=== PATIENT | male | born 1945 | race Caucasian/White ===

== ENCOUNTER → 2024-12-16 13:42 | Outpatient (REF) | payer OTHER, SELFPAY | LOC: EMG 13:42 | PROVIDERS: ATTENDING PHYSICIAN Podiatrist Foot & Ankle Surgery; FAMILY PHYSICIAN Nurse Practitioner Adult Health | DX: E11.40 Type 2 diabetes mellitus with diabetic neuropathy, unspecified (principal); R20.0 Anesthesia of skin; G60.8 Other hereditary and idiopathic neuropathies | CPT/HCPCS: 95886; 95911 ==

== ENCOUNTER 2025-02-28 09:42 | Emergency (ER) | payer OTHER, SELFPAY ==
[2025-02-28 09:51] VITALS: BP 159/89
--- NOTE | 2025-02-28 10:26 | ED.GENMED ---
History of Present Illness
General
Chief Complaint: Breathing Problem
Source: patient and spouse
Exam Limitations: none
Time Seen by Provider: 02/28/25 10:15
History of Present Illness
History of Present Illness:
79yoM with a history of Parkinson's disease, atrial fibrillation, chronic bronchitis, hypertension, hyperlipidemia, and type 2 diabetes presenting for evaluation of shortness of breath. Symptoms initially began 3 weeks ago. He reports shortness of
breath, cough, and chest congestion. He was seen at urgent care at symptom onset and was given a prescription for albuterol and what he believes was an antibiotic. He took this without any improvement. He is experiencing shortness of breath that
is worse with laying flat as well as with standing and ambulation. He went to urgent care again this morning and an EKG was performed and 'they did not like the way it looked' so sent him to the ED for evaluation. Patient denies any chest pain.
No fevers. He does have some leg swelling and takes Lasix as needed but has not taken this recently. Last echocardiogram in June 2023 showed an EF of 55-60%.
Past History
Past History
ED Past Medical History: HTN, Hypercholesterolemia, Other (Arthritis) and Other (Back pain, diverticulosis)
ED Past Surgical History: Other (Gastric bypass)
Social History
Tobacco: Non-smoker
Alcohol: Occasional
Drug: None
Personal:
Living: with family
Family History
Family History: Other
Phy Exam
General Physical Exam
General Presentation: well appearing and no apparent distress
General Skin: warm and dry
General Habitus: normal
General Mental: alert
ENT Exam
ENT Exam: normocephalic
Cardiovascular Exam
Cardiovascular Exam: regular rate/rhythm and other (Trace-1+ edema in bilateral lower extremities)
Pulmonary Exam
Pulmonary Exam: no rales, no crackles, no stridor, generalized wheezing and other (Generalized wheezing with dry cough. Speaking in full sentences without difficulty.)
Neurological Exam
Neurological Exam: alert
[place] Coma Scale
Eye Opening: Spontaneous
Verbal Response: Oriented
Motor Response: Obeys Commands
GCS Total Score: 15
Skin Exam
Skin Exam: normal color and warm/dry
Psychiatric Exam
Psychiatric Exam: normal mood/affect
Scores
Heart Failure Risk
Heart Failure Risk Score: Not Applicable
Course
Orders/Labs/Results
Orders:
Orders
02/28/25 09:53
EKG [Electrocardiogram (*1)] Urgent
Reason for Study: Shortness of Breath
EKG- Treatment ONCE
02/28/25 10:24
Cardiac Monitoring- Treatment ONCE
Ipratropium/Albuterol Sulfate [Duoneb] 3 ml INH R NOW STA
02/28/25 10:25
CR Chest - 2 Views Urgent
Comment:
Reason For Exam: SOB, cough
02/28/25 10:57
Complete Blood Count/With Diff Urgent
02/28/25 11:37
Comprehensive Metabolic Panel Urgent
NT-proBNP Urgent
Troponin I Urgent
Abnormal Lab Results
02/28/25 02/28/25
10:57 11:37
Absolute Eos (auto) 1.5 H 10^3/uL
(0-0.7)
Eosinophils % 16.9 H %
(0-6)
Chloride 109 H mmol/L
(98-107)
Carbon Dioxide 31 H mmol/L
(22-30)
Glucose 130 H mg/dl
(70-99)
02/28/25 10:57
02/28/25 11:37
Vital Signs
Initial and Last Documented VS:
Initial Vital Signs
Temp Pulse Resp BP Pulse Ox
97.7 F 89 17 159/89 99
02/28/25 09:51 02/28/25 09:51 02/28/25 09:51 02/28/25 09:51 02/28/25 09:51
Last Documented Vital Signs
Temp Pulse Resp BP Pulse Ox
97.7 F 104 16 137/112 96
02/28/25 09:51 02/28/25 12:00 02/28/25 12:00 02/28/25 12:00 02/28/25 12:00
MDM/Problems Addressed
Differential Diagnosis Includes:
79yoM here with cough, SOB, and chest congestion x 3 weeks. Sent here by urgent care for abnormal EKG. Hx of chronic bronchitis. Oxygen saturation 99% on room air. There is diffuse wheezing on lung exam. Mild peripheral edema noted. Differential
diagnosis includes but is not limited to: bronchitis, COPD exacerbation, pneumonia, CHF, less likely ACS
Initial ED plan: EKG obtained in triage shows NSR with a RBBB without signs of ischemic. EKG from 2021 also showed a RBBB. Viral testing at urgent care reportedly normal. Will check cardiac labs and CXR. DuoNeb and reassess.
*EKG
Interpreted by ED Provider?: Yes
EKG Intrepretation Date: 02/28/25
Heart Rate: 86
Rate: normal
Rhythm: sinus
[place]: normal axis
Interval: first degree heart block
QRS Pattern: right bundle branch block
Ischemia: no ischemia
*Critical Care Note
Total Time (30-74mins, 75-104mins- exclusive of procedures): Not Applicable
Update Note
Update Note:
Labs unremarkable including normal white count. BNP and troponin WNL. No pulmonary edema or infiltrates on CXR. Patient feeling significantly improved after neb treatment and is requesting to go home. No episodes of hypoxia during ED stay. No
indication for hospitalization. Suspect exacerbation of chronic bronchitis. He was started on a course of prednisone and prescription given for albuterol neb solution. He was also encouraged to take his home Lasix PRN for leg swelling. Advised close
f/u with PCP and ED return precautions reviewed. Patient discharged in stable condition.
ED Attending Note
-
Portions of this chart may have been created with voice recognition software.� Occasional wrong word or��sound alike� substitutions may have occurred due to the inherent limitations of voice recognition software.
Discharge Plan
Departure
Patient Disposition: Home (Routine Discharge)
Date of Disposition: 02/28/25
Time of Disposition: 12:49
Patient with high blood pressure during this ER visit?: Yes
Discharge Problem:
Shortness of breath, Acute bronchitis
Instructions: Acute Bronchitis, Adult (DC)
Prescriptions:
New
albuterol sulfate 0.63 mg/3 mL solution for nebulization
0.63 mg inhalation Q6H PRN (Reason: shortness of breath or wheezing) Qty: 90 0RF
prednisone 50 mg tablet
50 mg PO DAILY Qty: 5 0RF
No Action
lisinopril 5 MG tablet
10 mg PO DAILY
carbidopa-levodopa 1 EACH tablet
2 ea PO TID
escitalopram oxalate 10 MG tablet
15 mg PO DAILY
topiramate 50 MG tablet
150 mg PO BID
hpebfpox-mll-ZY-lycopen-lutein [Centrum Silver] 1 EACH tablet
1 ea PO DAILY
calcium citrate-vitamin D3 [Citracal + D Maximum] 1 EACH tablet
1 ea PO BID
dabigatran etexilate [Pradaxa] 150 MG capsule
150 mg PO BID
Vitamin B12:
1 tab PO SUMOWEFR
ascorbic acid (vitamin C) [Vitamin C] 1,000 MG tablet
1,000 mg PO DAILY
insulin glargine [Lantus U-100 Insulin] 100 UNIT/ML solution
30 unit SQ HS
ferrous sulfate [iron] 325 MG tablet
650 mg PO BID
budesonide 0.5 MG/2 ML suspension for nebulization
0.5 mg inhalation DAILY PRN (Reason: SOB)
levalbuterol tartrate 1 PUFF HFA aerosol inhaler
1 puff inhalation R Q4HPRN PRN (Reason: SOB)
tamsulosin 0.4 MG capsule
0.4 mg PO DAILY
metformin 500 MG tablet
1,000 mg PO BID Qty: 0 0RF
Rx Instructions:
hold post procedure, resume on 4/7 am
aspirin 81 MG tablet,chewable
81 mg PO DAILY Qty: 1 0RF
furosemide 40 MG tablet
40 mg PO DAILY
Referrals:
NONE,* [Family Provider, Internal Medicine]
Activity Restrictions/Additional Instructions:
Take prednisone as prescribed. Use nebulizer treatments as needed for wheezing or shortness of breath.
Please follow-up with your family doctor this week. Return to the ER with any new or worsening symptoms.
Interventions
Interventions:
*Risk Screen - Suicide Last Done: 02/28/25 09:52
*General Assessment Last Done: 02/28/25 09:52
*Neglect/Abuse Screening Last Done: 02/28/25 09:52
*ED COVID-19 Vaccine History Last Done: 02/28/25 09:52
*Nursing Disposition Last Done: 02/28/25 12:57
ED- Cardiac Assessment Last Done: 02/28/25 11:09
ED- Pulmonary Assessment Last Done: 02/28/25 11:09
Discharge Date and Time
Discharge Date/Time: 02/28/25 12:57
Print Language: [id number]
[2025-02-28 10:58] VITALS: BMI 35.9
[2025-02-28] MEDS: DUONEB 3 ML INH (10:59)
[2025-02-28 11:00] VITALS: BP 128/71
[2025-02-28 11:06] LABS: % Basophils 0.8 % (0-2); % Eosinophils 16.9 % (0-6); % Immature Granulocytes 0.2 % (0-0.5); % Lymphocytes 22.3 % (20.5-51.1); % Monocytes 6.4 % (1.7-9.3); % Neutrophils 53.4 % (42.2-75.2); Absolute Basophils 0.1 10^3/uL (0-0.2); Absolute Eosinophils 1.5 10^3/uL (0-0.7); Absolute Monocytes 0.6 10^3/uL (0.1-0.6); Absolute Neutrophils 4.8 10^3/uL (1.4-6.5); Hematocrit 48.3 % (39.0-52.0); Mean Corp Hgb Conc. 33.1 g/dL (33.0-37.0); Mean Corpuscular Hgb 28.2 pg (27.0-31.0); Mean Corpuscular Volume 85.2 fL (80.0-94.0); Mean Platelet Volume 9.5 fL (7.4-10.4); Nucleated Red Blood Cells % 0 % (-); Platelet Count 207 10^3/uL (130-400); Red Blood Cell Count 5.67 10^6/uL (4.70-6.10); Red Cell Dist. Width 14.4 % (11.5-14.5)
[2025-02-28 12:00] VITALS: BP 137/112
[2025-02-28 12:03] LABS: ALT (SGPT) 16 U/L (0-50); AST (SGOT) 18 U/L (17-59); Alkaline Phosphatase 88 U/L (38-126); Blood Urea Nitrogen 17 mg/dl (9-20); Calcium 8.7 mg/dl (8.4-10.2); Carbon Dioxide 31 mmol/L (22-30); Chloride 109 mmol/L (98-107); Estimated Creatinine Clearance 93 ml/min; Glucose 130 mg/dl (70-99); Potassium 4.3 mmol/L (3.5-5.1); Sodium 142 mmol/L (135-145); Total Bilirubin 0.8 mg/dl (0.2-1.3); Total Protein 6.5 g/dl (6.3-8.2); eGFR > 60.00
[2025-02-28 12:12] LABS: NT-proBNP 191 pg/ml; Troponin I < 0.012 ng/ml
== END 2025-02-28 12:57 | disposition home or self-care (01) ==
LOC: EMR 09:42
PROVIDERS: Physician Assistant; EMERGENCY PHYSICIAN Emergency Medicine
DX: J20.9 Acute bronchitis, unspecified (principal); E11.9 Type 2 diabetes mellitus without complications; E78.00 Pure hypercholesterolemia, unspecified; G20.A1 Parkinson's disease without dyskinesia, without mention of fluctuations; I10 Essential (primary) hypertension; I48.91 Unspecified atrial fibrillation; Z98.84 Bariatric surgery status
CPT/HCPCS: 99285; 94640; 71046; 80053; 83880; 84484; 85025; 93005